=== PATIENT | male | born 1965 | race Caucasian/White ===

== ENCOUNTER 2022-02-12 17:51 | Emergency (ER) | payer OTHER, SELFPAY ==
--- NOTE | ~2022-02-12 | XR_ITS ---
EXAMINATION: XR HAND, LEFT CLINICAL INFORMATION: Pain to index finger COMPARISON: None TECHNIQUE: PA, lateral, and oblique views of the left hand. FINDINGS: Diffuse osteopenia. No fracture or dislocation. There is subluxation but no dislocation of the second and third metacarpophalangeal joints. XR/XR hand LT min 3V IMPRESSION: No acute osseous abnormality. Severe diffuse osteopenia. Nonspecific subluxation at the second and third metacarpophalangeal joints. An inflammatory arthritis could give this appearance.
[2022-02-12 17:58] VITALS: BP 125/72; PULSE 62; RESP 16; TEMP 36.7; O2SAT 98; BMI 26.3
--- NOTE | 2022-02-12 19:48 | ED_ITS ---
HPI - General Adult General Chief complaint: General Medical Stated complaint: ?Spider bite on finger Time Seen by Provider: 02/12/22 19:39 Source: patient Mode of arrival: ambulatory Limitations: no limitations History of Present Illness HPI narrative: 56-year-old male presents with an abscess to the left finger that has been worsening over the past 2 days. Patient tells me he has left-sided paralysis baseline so he has decreased sensation to that extremity tells me he may have hit it against something or maybe got bit by spider. He did not visualize any insect biting him. Tells me he thinks he hit into a car door yesterday however he is not sure. Denies fevers, chills, numbness and tingling that the out of the ordinary. Patient tells me at baseline he has difficulty moving all those fingers on the left hand however he is able to move them his normal baseline. Tetanus status unknown Related Data Previous Rx's Medication Instructions Recorded cephalexin 500 mg tablet 500 mg PO Q6H 10 days #40 tabs 02/12/22 doxycycline hyclate 100 mg capsule 100 mg PO BID 10 days #20 caps 02/12/22 Allergies Allergy/AdvReac Type Severity Reaction Status Date / Time codeine [CODEINE] Allergy Intermediate ITCHINESS Verified 02/12/22 17:57 Review of Systems Review of Systems: Constitutional : No Weight loss, No Fever, No Chills, No Fatigue, No Malaise ENT/Mouth : No sore throat, No Rhinorrhea Eyes: No Eye Pain, No Swelling, No Redness Cardiovascular : No Chest Pain, No SOB, No Dyspnea on Exertion, No Orthopnea, No Edema, No Palpitations Respiratory : No Cough, No Sputum, No Wheezing Gastrointestinal : No Nausea, No Vomiting, No Diarrhea, No Constipation, No abdominal Pain, No Hematochezia, No Melena Genitourinary : No Dysuria, No Urinary Frequency, No Hematuria, Musculoskeletal : + joint pain, No Myalgias, + Joint Swelling Skin : No Skin Lesions, No rash Neuro : No Weakness, No Numbness, No Dizziness, No Headache Psych : No Anxiety/Panic, No Depression All other systems reviewed and are negative Yes all other systems are reviewed and are negative PMFSH Past Medical History Attestation statement: The following information was validated with the patient. Source: old records reviewed and nursing notes reviewed Social History Social History Advance Directives: No Advance Directives Information Provided: No Physical Exam ED Vital Signs: Vital Signs - 24 hr 02/12/22 17:58 Temperature 98.1 F Pulse Rate 62 Respiratory Rate 16 Blood Pressure 125/72 Pulse Oximetry 98 Oxygen Delivery Method Room Air BMI result Body Mass Index 26.3 vss Appearance: Alert.? Oriented X3.? No acute distress.? Head: Normocephalic, atraumatic, no step-offs or deformities Eyes: Pupils equal, round and reactive to light.? ENT: Pharynx normal.??External ears normal, TMs normal bilaterally and EAC's normal. No pain with manipulation of external ears bilaterally. No mastoid tenderness. Neck: Normal inspection.? Neck supple.? CVS: Normal heart rate and rhythm.? Pulses normal.? Respiratory: No respiratory distress.? Breath sounds normal.? Abdomen: Soft and nontender.? Skin: Skin warm and dry.? Normal skin color.? Normal skin turgor.? Extremities: No lower extremity edema.? No calf ttp. Left sided paralysis at baseline with decreased sensation to extremity. + abscess to left index finger w/ purulence 2+ radial pulses equal and b/l. Cap refill < 2 seconds Neuro: Oriented X 3.? No motor deficit.? No sensory deficit. CN 2-12 intact Course Reevaluation(s) Reevaluation #1: deroofed area w/ needle large amount of purulence expressed. Patient tolerated procedure well. Time: 20:43 Reevaluation #2: X-ray with no signs of osteomyelitis. At this time patient will be discharged home given hand written scripts. Comfortable discharge home educated to return with new or worsening symptoms. Comfortable discharge Time: 21:17 Medical Decision Making [facility] Narrative Medical decision making narrative: 1997 56-year-old male presents with abscess to his left index finger x2 days wors ening Physical examination with an abscess overlying the left index finger. With overlying cellulitis. Patient with normal range of motion to fingers. Likely abscess, unlikely septic joint, compromise limb. Plan at this time is to obtain an x-ray to rule out osteomyelitis/bone involvement, although unlikely. Medical Records Medical records reviewed: Yes I reviewed the patient's medical records. Lab Data Lab results reviewed: Yes I reviewed the patient's lab results. Critical Care Time Critical Care Time Critical Care Time: No Discharge Plan Discharge Clinical Impression: Cellulitis Patient Disposition: Home, Self-Care Instructions: Cellulitis (ED), Warm Compress or Soak (ED) Additional Instructions: Take your medications as prescribed. If you were prescribed antibiotics today, it is important that you take your medication to their entirety, do not skip any doses, do not finish them early. Follow-up with your primary care provider this week. Return to the emergency department with new or worsening symptoms. Such as fevers, chills, chest pain, shortness of breath, nausea, vomiting, dizziness, headache, vision changes, lethargy In case of emergency call 911 Educated you on signs of infection please return if any of these arise. Prescriptions: New doxycycline hyclate 100 mg capsule 100 mg PO BID 10 Days Qty: 20 0RF cephalexin 500 mg tablet 500 mg PO Q6H 10 Days Qty: 40 0RF Referrals: Mavis Tabor MD [Primary Care Provider] - 2 days Stand Alone Forms: Work/School Release
[2022-02-12] MEDS: Diphth,Pertus(ACell),Tet Adult 0.5 ML SYRINGE IM (21:15)
== END 2022-02-12 21:27 | disposition home or self-care (01) ==
PROVIDERS: Emergency Provider Emergency Medicine; PCP Internal Medicine
DX: L03.012 Cellulitis of left finger (principal); L02.512 Cutaneous abscess of left hand
CPT/HCPCS: 26010; 73130; 90471; 90715; 99282; 99284